=== PATIENT | female | born 1935 | race Caucasian/White ===

== ENCOUNTER 2021-07-22 14:09 | Outpatient (REF) | payer MEDICARE, MEDICAID, SELFPAY ==
--- NOTE | 2021-07-24 10:35 | MHC.AU.MED ---
Medical Clearance for Hearing Instrumentation Date: 07/24/21 Patient Name: Cooper Reagan Date of : 1935 Referring Provider: Muna Chan MD We have seen your patient on 07/23/21 and have determined that they are a candidate for amplification (See accompanying report). Specifically, they would benefit from: Hearing aid use in both ears There is a statute that addresses Medical Evaluation Requirements prior to fitting a patient with a hearing aid. According to [place] statute 265 CMR:6.03(1), (a) General. Except as provided in 265 CMR 6.03(1)(b), a scagliola mechanic shall not sell a hearing aid unless the prospective user has presented to the scagliola mechanic a written statement signed by a licensed physician that states that the patient's hearing loss has been medically evaluated and the patient may be considered a candidate for a hearing aid. The medical evaluation must have taken place within the preceding six months. Please note: Due to the [place] Statute referenced above, we cannot accept a signature other than that of a licensed physician. ACCOUNT RESOLUTION EXPERT and PA signatures cannot be accepted. I am in agreement with the above recommendation. There is no medical contraindication for hearing instrumentation. Physician Signature Date Physician Name (Printed)
--- NOTE | 2021-07-24 10:36 | MHC.AU.ANO ---
Adult Audiological Evaluation Date of Visit: 07/24/21 Reason for Appointment: Patient has been experiencing significant hearing difficulty that is affecting her daily life and communication. Has hearing been tested previously?: No Hearing Handicap Inventory: HHIE SCORE: 40 Based on HHIE score, patient has: Severe perceived hearing handicap Ear History: Ear Deformity: None Reported Recent Ear Drainage: None Reported Recent Ear Pain: None Reported Family History of Hearing Loss?: Yes Recent Ear Infections: None Reported Ear Infections in Childhood: None Reported History of Ear Wax Buildup: None Reported Previous Ear Surgery: None Reported Bothersome Tinnitus/Ringing/Noises in Ears: None Reported Ear used on the phone: Right Ear Blocked/Full Sensation in Ear(s): None Reported History of occupational noise exposure?: No History: No Medical History: Medical History: Cancer, Heart Problems, High Blood Pressure Otoscopy: Right Ear: Unremarkable Left Ear: Unremarkable Tympanometry: Tympanometry performed due to: To assess integrity of the middle ear system Right Ear: Normal Middle Ear System (Type A) Left Ear: Normal Middle Ear System (Type A) Hearing Evaluation: Transducer(s) Used: Insert Earphones Method: Conventional Audiometry Stimuli Used: Pure Tones Right Ear: Description of Hearing: Moderately-severe to severe sensorineural hearing loss Left Ear: Description of Hearing: Moderately-severe to severe sensorineural hearing loss Speech Recognition Threshold (SRT): Method Used: Did not test- Anguillan is not patient's primary language Word Discrimination: Method: Did not test- Anguillan is not patient's primary language Recommendations: Audiological re-evaluation in one year. Trial with amplification is recommended. See Hearing Aid Evaluation report for more information. Diagnosis: Primary Diagnosis: H90.3 Bilateral Sensorineural Hearing Loss Signature: Provider: Jairo Rogers, CCC-A
--- NOTE | 2021-07-24 10:46 | MHC.AU.HAS ---
Hearing Aid Evaluation Date of Visit: 07/24/21 Historical Information: Description of Hearing: Moderately-severe to severe sensorineural hearing loss bilaterally Summary: Patient was seen for audiological evaluation (see separate report for details). Patient is interested in amplifcation. Options were discussed. Patient would prefer a rechargeable custom product. Hearing Aid Prescription: Based on the individual?s shared listening needs, communication environments, dexterity, desire for connectivity, and personal preferences, the following prescription for amplification has been made: Right ear: Drilling And Production Superintendent: TekLinks Model: Evolv AI 1600 ITC-R Battery Size: Rechargeable Color: Mills Left ear: Drilling And Production Superintendent: [employer]ekLinks Model: Evolv AI 1600 ITC-R Battery Size: Rechargeable Color: Mills Action Taken/Action Needed: Earmold Impressions Taken Medical Clearance to be requested from PCP/ENT Hearing Instrument Fitting to be scheduled when materials arrive Primary Diagnosis: H90.3 Bilateral Sensorineural Hearing Loss Signature: Provider: Jairo Rogers, CCC-A
== END 2021-07-22 14:10 | disposition home or self-care (01) ==
LOC: HO.SH 14:09
PROVIDERS: Visit Provider Internal Medicine
DX: Z01.118 Encounter for examination of ears and hearing with other abnormal findings (principal); Z46.1 Encounter for fitting and adjustment of hearing aid; H90.3 Sensorineural hearing loss, bilateral
CPT/HCPCS: 92553; 92567; 92591; V5275

== ENCOUNTER 2021-08-29 13:33 | Outpatient (REF) | payer MEDICARE, MEDICAID, SELFPAY ==
--- NOTE | 2021-09-11 08:53 | MHC.AU.HFA ---
Hearing Instrument Fitting- Adult- Binaural Date of Visit: 08/29/21 Hearing Instruments Dispensed: Right Ear: Scalp Treatment Specialist: Material Mix Model: Dreamisev AI 1600 ITC-R Serial Number: [id number] Repair Warranty: 09/18/2024 Loss and Damage Warranty: 09/18/2024 Battery Size: Rechargeable Color: Mills Type of Wax Guard: HearClear Left Ear: Scalp Treatment Specialist: Material Mix Model: Dreamisev AI 1600 ITC-R Serial Number: [id number] Repair Warranty: 09/18/2024 Loss and Damage Warranty: 09/18/2024 Battery Size: Rechargeable Color: Mills Type of Wax Guard: HearClear Summary of Fitting: Feedback automotive general manager run. Verifit run and levels adjusted to better reach targets. Patient had significant intolerance of the sound of her own voice. She reported that my voice sounded good, but she could not handle how her own voice sounded. Lowered Experience Telephone Services Sales Representative to Level 1 ([place]). Lowered Loud gain. Patient was still complaining about the sound of her own voice. Counseled on realistic expectations and that her voice sounds different because she has not heard her own voice in a long time. She was encouraged to wear the hearing aids throughout all waking hours, and that the perception of her voice will improve with time. Discussed that I did not want to lower the gain anymore than we already had, as then everyone else's voices would be too soft. Hearing aid care and maintenance were discussed and practiced. Hearing aids were not paired to a phone. Recommendations: A hearing instrument follow-up was scheduled. Diagnosis Code(s): Primary Diagnosis: H90.3 Bilateral Sensorineural Hearing Loss Signature: Provider: Jairo Rogers, [facility]
== END 2021-08-29 13:34 | disposition home or self-care (01) ==
LOC: HO.HAP 13:33
PROVIDERS: Visit Provider Internal Medicine
DX: Z46.1 Encounter for fitting and adjustment of hearing aid (principal); H90.3 Sensorineural hearing loss, bilateral
CPT/HCPCS: V5011; V5020; V5160; V5259

== ENCOUNTER 2021-09-12 14:28 | Outpatient (REF) | payer MEDICARE, MEDICAID, SELFPAY ==
--- NOTE | 2021-09-12 15:22 | MHC.AU.HFU ---
Hearing Instrument Follow-Up- Binaural Date of Visit: 09/12/21 Right Ear: Area Plant Manager: Dede Model: Evolv AI 1600 ITC-R Serial Number: [id number] Repair Warranty: 09/18/2024 Loss and Damage Warranty: 09/18/2024 Battery Size: Rechargeable Type of Wax Guard: HearClear Dispensed By: [facility] Date of Fittin08/29/2021 Left Ear: Area Plant Manager: Dede Model: Evolv AI 1600 ITC-R Serial Number: [id number] Repair Warranty: 09/18/2024 Loss and Damage Warranty: 09/18/2024 Battery Size: Rechargeable Type of Wax Guard: HearClear Dispensed By: [facility] Date of Fittin08/29/2021 Follow-Up Summary: Patient arrived for hearing aid follow-up. She reports the hearing aids have been falling out of her ears. Impressions were taken bilaterally without complication and sent to [facility], along with the hearing aids, for remake. Patient also reports that she was still having difficulty hearing conversation. Advised patient that we turned the volume down significantly at the initial fit to help her build tolerance to her own voice. Now that she is starting to adapt to the hearing aids, we can begin turning the volume up closer to target. Programming changes will be made at the next visit when the remade hearing aids have arrived. Recommendations: Patient will be contacted when materials have arrived. Diagnosis Code(s): Primary Diagnosis: H90.3 Bilateral Sensorineural Hearing Loss Signature: Provider: Jairo Rogers, CCC-A
== END 2021-09-12 14:29 | disposition home or self-care (01) ==
LOC: HO.HAP 14:28
PROVIDERS: Visit Provider Internal Medicine
DX: Z13.89 Encounter for screening for other disorder (principal)

== ENCOUNTER 2021-09-26 13:11 | Outpatient (REF) | payer MEDICARE, MEDICAID, SELFPAY | END 2021-09-26 13:12 | disposition home or self-care (01) | LOC: HO.HAP 13:11 | PROVIDERS: Visit Provider Internal Medicine | DX: Z13.89 Encounter for screening for other disorder (principal) ==

== ENCOUNTER 2024-07-27 14:40 | Outpatient (REF) | payer MEDICARE, MEDICAID, SELFPAY ==
--- OUTSIDE RECORDS SUMMARY | 2024-07-27 14:47 | XMS_ITS | Clinical Summary ---
Author Organization [facility] Address [address] [place] [address] Phone Care Team Providers Care Insole Doubler Name Role Phone Muna Chan MD Primary Care Provider [phone] Allergies Active Allergy Reactions Criticality Noted Date Comments Enalapril 03/11/2021 Metoprolol 03/11/2021 Omeprazole 03/11/2021 Medications aspirin 81 mg EC tablet Take 1 Tab by mouth daily. Active atorvastatin (LIPITOR) 80 mg tablet Take 80 mg by mouth daily. Active enalapril (VASOTEC) 20 mg tablet Take 1 Tab by mouth daily. Active levothyroxine (SYNTHROID, LEVOTHROID) 100 mcg tablet Take 100 mcg by mouth daily. Active metoprolol tartrate (LOPRESSOR) 50 mg tablet Take 50 mg by mouth daily. 01/22/2015 Active nitroglycerin (NITROSTAT) 0.[address] 1 Tab under the tongue every 5 minutes as needed. Active omeprazole (PriLOSEC) [address] capsule Take 20 mg by mouth daily. Active Active Problems Problem Noted Date Diagnosed Date Arterial bruit 09/04/2020 Overview (07/15/2024): Last Assessment & Plan: Patient does not either have bilateral carotid bruits or transmitted murmur. I will schedule for carotid Doppler exam. Palpitations 09/04/2020 Overview (07/15/2024): Last Assessment & Plan: Does get these episodes of palpitations is not clear if she is having an arrhythmia or not. Given this fact as well as her bradycardia I will schedule for 48-hour Holter monitor. Coronary atherosclerosis 08/31/2020 Overview (07/15/2024): Last Assessment & Plan: As I noted the patient does have a known history of coronary artery disease. She is getting these episodes of chest pain is not clear to me if this is ischemic mediated or not. However I do think we need to exclude this I will schedule for stress echocardiogram. The meantime I did tell her she have any discomforts in her chest that lasted over 20 minutes call 911. 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 Encounters Date Type Department Care Team Description 07/20/2024 1:38 PM EST - 07/20/2024 11:59 PM EST [facility] at [address] [address] Encounter for screening mammogram for breast cancer Discharge Disposition: Home or Self Care from Last 3 Months Medical History Medical History Date Comments Family history of malignant neoplasm of breast DX:Family history of maligna nt neoplasm of breast Anxiety state DX:Anxiety state Social History Tobacco Use Types Packs/Day Years Used Date Smoking Tobacco: Former Cigarettes 0.3 15.1 0 06/08/2006 - 07/09/2021 Smokeless Tobacco: Never Alcohol Use Standard Drinks/Week Comments Yes 0 (1 standard drink = 0.6 oz pur e alcohol) Comments Unknown Sex and Gender Information Value Date Recorded Sex Assigned at Female 07/05/2024 3:01 PM EST Legal Sex Female 7:52 AM EST Gender Identity Female 07/05/2024 3:01 PM EST Sexual Orientation Straight 07/05/2024 3: 01 PM EST Obstetrics History Last Filed Vital Signs Vital Sign Reading Time Taken Comments Blood Pressure 118/60 01/02/2022 2:53 PM EDT Pulse 56 01/02/2022 2:53 PM EDT Temperature - - Respiratory Rate - - Oxygen Saturation - - Inhaled Oxygen Concentration - - Weight 70.3 kg (155 lb) 01/02/2022 2:53 PM EDT Height 160 cm (5' 3 ) 01/02/2022 2:53 PM EDT Body Mass Index 27.46 01/02/2022 2:53 PM EDT Plan of Treatment Upcoming Encounters Date Type Department Care Team (Late st Contact Info) Description 08/01/2024 2:00 PM EST Office Visit [facility] Hematology Oncology [address] [place] [phone] Joesph Guallpa MD [address] [place] [address] Health Maintenance Due Date Last Done Comments DTaP,Tdap,and Td Vaccines (1 - Tdap) [birth year]30/1954 Pneumococcal Vaccine: 50+ Years (1 of 1 - PCV) 1986 Zoster Vaccines (1 of 2) 1986 RSV Immunization Patients 60+ Years Old (1 - 1-dose 75+ series) 12/30/2011 Cholesterol Screening (Lipid Panel) 05/11/2022 Depression Screening 05/11/2022 Falls Risk Assessment 05/11/2022 Medicare Annual Wellness Visit 05/11/2022 Osteoporosis Screening (Bone Density Screening) 05/11/2022 Social Influencers of Health Screening 05/11/2022 Hypertension/CHF/CAD Annual BMP Blood Test 05/24/2022 COVID-19 Vaccine ( season) 2024 01/18/2022, 03/02/2021, 08/30/2020, Additional history exists Influenza Vaccine (#1) 2024 , 03/05/2018, 03/10/2017, Additional history exists HIB Vaccines Aged Out No longer eligi ble based on patient's age to complete this topic HPV Vaccines Aged Out No longer eligi ble based on patient's age to complete this topic Hepatitis A Vaccines Aged Out No long er eligible based on patient's age to complete this topic Hepatitis B Vaccines Aged Out No long er eligible based on patient's age to complete this topic IPV Vaccines Aged Out No longer eligi ble based on patient's age to complete this topic MMR Vaccines Aged Out No longer eligi ble based on patient's age to complete this topic Meningococcal ACWY Vaccine Aged Out N o longer eligible based on patient's age to complete this topic Meningococcal B Vacine Aged Out No lo nger eligible based on patient's age to complete this topic RSV Immunization Patients Under 20 months Aged Out No longer eligible based on patient's age to complete this topic Varicella Vaccines Aged Out No longer eligible based on patient's age to complete this topic Procedures Procedure Name Priority Date/Time Associated Diagnosis Comments MG MAMMO DIGITAL SCREENING W WILLIE BILAT Routine 07/20/2024 3:39 PM EST Encounter for screening mammogram for breast cancer from Last 3 Months Results * MG Mammo Digital Screening w Willie bilat (07/20/2024 3:39 PM EST) Anatomical Region Laterality Modality Breast Bilateral Mammography 07/21/2024 12:0 4 PM EST Impressions 07/21/2024 12:10 PM EST No mammographic evidence of malignancy. ??Benign findings. BI-RADS: ??Category 2: Benign RECOMMENDATION(S): Routine screening mammogram BILATERAL in 1 year. -------- FINAL REPORT -------- Dictated By: ALLEN CARDENAS Dictated Date: 07/21/2024 12:04 ET Assigned Physician: ALLEN CARDENAS Reviewed and Electronically Signed By: ALLEN CARDENAS Signed Date: 07/21/2024 12:10 ET Workstation ID: [id number] Transcribed By: Self Edit Transcribed Date: 07/21/2024 12:04 ET Narrative 07/21/2024 12:10 PM EST EXAM: MG MAMMO DIGITAL SCREENING W WILLIE BILAT EXAM DATE AND TIME: 07/20/2024 3:39 PM HISTORY: Screening, the patient has a personal history of right breast cancer treated with lumpectomy and radiation in 2010. COMPARISON: 09/30/2021 and 09/27/2020 TECHNIQUE: Bilateral digital breast tomosynthesis was performed in the MLO projection. Computer aided detection with [employer] 3D 3.1 was employed. TISSUE DENSITY: b: There are scattered areas of fibroglandular density. FINDINGS: There is no evidence of suspicious mass, unusual calcifications, or architectural distortion. ??Postsurgical change can be identified on the right. ??Scattered bilateral benign calcifications are seen. Procedure Note Allen Cardenas MD - 07/21/2024 EXAM: MG MAMMO DIGITAL SCREENING W WILLIE BILAT EXAM DATE AND TIME: 07/20/2024 3:39 PM HISTORY: Screening, the patient has a personal history of right breastcancer treated with lumpectomy and radiation in 2010. COMPARISON: 09/30/2021 and 09/27/2020 TECHNIQUE: Bilateral digital breast tomosynthesis was performed in the MLOprojection. Computer aided detection with [employer] AI 3D 3.1 wasemployed. TISSUE DENSITY: b: There are scattered areas of fibroglandular density. FINDINGS: There is no evidence of suspicious mass, unusual calcifications, orarchitectural distortion. Postsurgical change can be identified on theright. Scattered bilateral benign calcifications are seen. IMPRESSION: No mammographic evidence of malignancy. Benign findings. BI-RADS: Category 2: Benign RECOMMENDATION(S): Routine screening mammogram BILATERAL in 1 year. -------- FINAL REPORT -------- Dictated By: ALLEN CARDENAS Dictated Date: 07/21/2024 12:04 ET Assigned Physician: ALLEN CARDENAS Reviewed and Electronically Signed By: ALLEN CARDENAS Signed Date: 07/21/2024 12:10 ET Workstation ID: [id number] Transcribed By: Self Edit Transcribed Date: 07/21/2024 12:04 ET us Self Referral Sppl IMG BI PROCEDURES Final Resul t from Last 3 Months Insurance MEDICARE MEDICAID - [place] Care Teams Insole Doubler Relationship Specialty Start Date End Date Muna Chan MD [address] [place] [address] PCP - General 08/21/13
--- OUTSIDE RECORDS SUMMARY | 2024-07-27 14:47 | XMS_ITS | Clinical Summary ---
Author Organization [facility] Address [address] [place] [address] Care Team Providers Care Refrigerator Repairman Name Role Phone Muna Chan MD Primary Care Provider [phone] Allergies No known active allergies Medications Medication Sig Dispensed Refills Start Date End Date Status metoprolol succinate (TOPROL-XL) 24 hr tablet 50 mg Take by mouth daily. 0 Active levothyroxine (SYNTHROID, LEVOXYL) tablet 88 mcg Take 88 mcg by mouth every morning on an empty stomach. 0 Active atorvastatin (LIPITOR) tablet 80 mg Take 80 mg by mouth daily. 0 Active enalapril (VASOTEC) 20 MG tablet Take 20 mg by mouth daily. 0 Active omeprazole (PriLOSEC) 20 MG capsule Take 20 mg by mouth daily. 0 Active aspirin EC 81 MG tablet Take 81 mg by mouth daily. 0 Active Active Problems No known active problems Social History Tobacco Use Types Packs/Day Years Used Date Smoking Tobacco: Former Smokeless Tobacco: Never Alcohol Use Standard Drinks/Week Comments No 0 (1 standard drink = 0.6 oz pur e alcohol) Sex and Gender Information Value Date Recorded Sex Assigned at Not on file Gender Identity Not on file Sexual Orientation Not on file Last Filed Vital Signs Vital Sign Reading Time Taken Comments Blood Pressure 133/49 09/05/2020 1:11 PM EDT Pulse 58 09/05/2020 1:11 PM EDT Temperature 36.6 ??C (97.8 ??F) 09/05/2020 1:11 PM ED T Respiratory Rate - - Oxygen Saturation 98% 09/05/2020 1:11 PM EDT Inhaled Oxygen Concentration - - Weight 69.4 kg (153 lb) 09/05/2020 1:11 PM EDT Height 153.7 cm (5' 0.5 ) 11/30/2017 2:43 PM EDT Body Mass Index 29.39 11/30/2017 2:43 PM EDT Plan of Treatment Health Maintenance Due Date Last Done Comments COVID-19 Vaccine (#1) 07/01/1936 Depression Screening 1948 Preventative Health Evaluation 1954 DTap / Tdap / Td (1 - Tdap) 12/30/1955 Shingrix-Zoster Vaccine (1 of 2) 1986 Fall Risk Assessment 2001 Osteoporosis Screening (DEXA Scan) 2001 Pneumococcal Vaccine (1 of 1 - PCV) 2001 RSV Adult > 60+ Yrs or Pregn ant (1 - 1-dose 75+ series) 12/30/2011 Influenza Vaccine (#1) 2024 Hepatitis B Vaccines Aged Out No long er eligible based on patient's age to complete this topic RSV Ped < 20 months Aged Out No longe r eligible based on patient's age to complete this topic Care Teams Refrigerator Repairman Relationship Specialty Start Date End Date Muna Chan MD [address] [place] [address] [address] [place] [address] PCP - General Internal Medicine 04/16/17
--- OUTSIDE RECORDS SUMMARY | 2024-07-27 14:47 | XMS_ITS | Encounter Summary ---
Author Organization [facility] [place] [address] Care Team Providers Care Nursing Educator Name Role Phone Muna Chan MD Primary Care Provider [phone] Reason for Referral * Imaging (Routine) - Closed Specialty Diagnoses / Procedures Referred By Contac t Referred To Contact Radiology Diagnoses Encounter for screening mammogram for breast cancer Procedures MG Mammo Digital Screening w Willie bilat Spp, Self Referral [facility] Referral ID Status Reason Start Date Expiration Date Visits Re quested Visits Authorized [id number] Closed 07/05/2024 07/05/2025 1 1 Reason for Visit * Imaging (Routine) - Closed Specialty Diagnoses / Procedures Referred By Steffen thompson Referred To Contact Radiology Diagnoses Encounter for screening mammogram for breast cancer Procedures MG Mammo Digital Screening w Willie bilat Spp, Self Referral [facility] Referral ID Status Reason Start Date Expiration Date Visits Re quested Visits Authorized [id number] Closed 07/05/2024 07/05/2025 1 1 Encounter Details Date Type Department Care Team (Latest Contact Info) Description 07/20/2024 1:38 PM EST - 07/20/2024 11:59 PM EST [facility] at [address] [phone] Encounter for screening mammogram for breast cancer Discharge Disposition: Home or Self Care Social History Tobacco Use Types Packs/Day Years [...] Orientation Straight 07/05/2024 3: 01 PM EST documented as of this encounter Medications at Time of Discharge aspirin 81 mg EC tablet Take 1 Tab by mouth daily. atorvastatin (LIPITOR) 80 mg tablet Take 80 mg by mouth daily. enalapril (VASOTEC) 20 mg tablet Take 1 Tab by mouth daily. levothyroxine (SYNTHROID, LEVOTHROID) 100 mcg tablet Take 100 mcg by mouth daily. metoprolol tartrate (LOPRESSOR) 50 mg tablet Take 50 mg by mouth daily. 01/22/2015 nitroglycerin (NITROSTAT) 0.[address] 1 Tab under the tongue every 5 minutes as needed. omeprazole (PriLOSEC) [address] capsule Take 20 mg by mouth daily. documented as of this encounter Discharge Disposition Disposition Code Departure Means Destination Home or Self Care documented in this encounter Plan of Treatment Upcoming Encounters Date Type Department Care Team (Late st Contact Info) Description 08/01/2024 2:00 PM EST Office Visit [facility] Hematology Oncology [address] [place] [address] Joesph Guallpa MD [address] [place] [address] documented as of this encounter Procedures Procedure Name Priority Date/Time Associated Diagnosis Comments MG MAMMO DIGITAL SCREENING W WILLIE BILAT Routine 07/20/2024 3:39 PM EST Encounter for screening mammogram for breast cancer documented in this encounter Results * MG Mammo Digital Screening w [...] Signed Date: 07/21/2024 12:10 ET Workstation ID: [id number] Transcribed By: Self Edit Transcribed Date: 07/21/2024 [...] the MLO projection. Computer aided detection with [employer] AI 3D 3.1 was employed. TISSUE DENSITY: b: There are scattered areas of fibroglandular density. FINDINGS: There is no evidence of suspicious mass, unusual calcifications, or architectural distortion. ??Postsurgical change can be identified on the right. ??Scattered bilateral benign calcifications are seen. Procedure Note Allen Cardenas MD - 07/21/2024 EXAM: MAMMO DIGITAL SCREENING W WILLIE BILAT EXAM DATE AND TIME: 07/20/2024 3:39 PM HISTORY: Screening, the patient has a personal history of right breastcancer treated with lumpectomy and radiation in 2010. COMPARISON: 09/30/2021 and 09/27/2020 TECHNIQUE: Bilateral digital breast tomosynthesis was performed in the MLOprojection. Computer aided detection with [employer] AI 3D 3.1 wasemployed. TISSUE DENSITY: b: [...] Signed Date: 07/21/2024 12:10 ET Workstation ID: [id number] Transcribed By: Self Edit Transcribed Date: 07/21/2024 12:04 ET us Self Referral Sppl IMG BI PROCEDURES Final Resul t documented in this encounter Visit Diagnoses Diagnosis Encounter for screening mammogram for breast cancer documented in this encounter Care Teams Nursing Educator Relationship Specialty Start Date End Date Muna Chan MD [address] [place] [address] PCP - General 08/21/13 documented as of this encounter
== END 2024-07-27 14:41 | disposition home or self-care (01) ==
LOC: HO.HAP 14:40
PROVIDERS: Visit Provider Family Medicine Adult Medicine
DX: Z13.89 Encounter for screening for other disorder (principal)

== ENCOUNTER 2024-08-22 12:52 | Outpatient (REF) | payer MEDICARE, MEDICAID, SELFPAY ==
--- OUTSIDE RECORDS SUMMARY | 2024-08-22 15:00 | XMS_ITS | Encounter Summary ---
Author Organization [facility] Address [address] [place] [address] Care Team Providers Care New Product Trainer Name Role Phone Muna Chan MD Primary Care Provider [phone] Reason for Visit * Reason Comments Consult * Consultation (Routine) - Closed Specialty Diagnoses / Procedures Referred By Steffen thompson Referred To Contact Hematology and Oncology Diagnoses Personal history of breast cancer Muna Chan MD [address] [place] [address] Phone: tel: fax: [facility] Hematology Oncology [address] [place] [phone] Phone: tel: fax: Referral ID Status Reason Start Date Expiration Date V isits Requested Visits Authorized [id number] Closed Specialty Services Required 07/14/2024 07/14/2025 1 1 Encounter Details Date Type Department Care Team (Late st Contact Info) Description 08/01/2024 2:00 PM EST Office Visit [facility] Hematology Oncology [address] [place] [address] Joesph Guallpa MD [address] [place], [place] [phone] 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) Social History Tobacco Use Types Packs/Day Years [...] PM EST documented as of this encounter Last Filed Vital Signs Vital Sign Reading Time Taken Comments Blood Pressure 170/52 08/01/2024 2:09 PM EST Pulse 65 08/01/2024 2:09 PM EST Temperature 36.9 ??C (98.5 ??F) 08/01/2024 2:09 PM ES T Respiratory Rate - - Oxygen Saturation 99% 08/01/2024 2:09 PM EST Inhaled Oxygen Concentration - - Weight 65.8 kg (145 lb) 08/01/2024 2:09 PM EST Height 144.8 cm (4' 9 ) 08/01/2024 2:09 PM EST Body Mass Index 31.38 08/01/2024 2:09 PM EST documented in this encounter Progress Notes * Joesph Guallpa MD - 08/01/2024 2:00 PM EST ONC CANCER INITIAL VISIT Dear Muna, Thank you very much for referring this patient for consultation. 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 Patient recently had mammogram reported normal, patient referred to me for evaluation and follow-up, patient is here ROS: Patient has been feeling fair Patient denies any breast related complaint except recent mammogram cause some discomfort Patient denies any chest pain chest pressure Patient we will get some abdominal discomfort in upper abdomen denies any black stool blood in stool Patient denies any new unusual aches and pain PAST MEDICAL HISTORY: Coronary artery disease/[place] Dyslipidemia Hypertension Hypothyroidism Breast cancer PAST SURGICAL HISTORY: Right breast lumpectomy SOCIAL HISTORY: Social History Tobacco Use Smoking status: Former Current packs/day: 0.00 Average packs/day: 0.3 packs/day for 15.1 years (3.8 ttl pk-yrs) Types: Cigarettes Start date: 06/08/2006 Quit date: 07/09/2021 Years since quittin.0 Smokeless tobacco: Never Substance Use Topics Alcohol use: Yes FAMILY HISTORY: Noncontributory MEDICATIONS: Current Outpatient Medications: aspirin 81 mg EC tablet, Take 1 Tab by mouth daily., Disp: , Rfl: atorvastatin (LIPITOR) 80 mg tablet, Take 80 mg by mouth daily., Disp: , Rfl: enalapril (VASOTEC) 20 mg tablet, Take 1 Tab by mouth daily., Disp: , Rfl: levothyroxine (SYNTHROID, LEVOTHROID) 100 mcg tablet, Take 100 mcg by mouth daily., Disp: , Rfl: metoprolol tartrate (LOPRESSOR) 50 mg tablet, Take 50 mg by mouth daily., Disp: , Rfl: omeprazole (PriLOSEC) [address] capsule, Take 20 mg by mouth daily., Disp: , Rfl: No Known Allergies PHYSICAL EXAM: Visit Vitals BP (!) 170/52 (BP Location: Right arm, Patient Position: Sitting, BP Cuff Size: Adult) Pulse 65 Temp 36.9 ??C (98.5 ??F) (Temporal) Ht 1.448 m (57 ) Wt 65.8 kg (145 lb) SpO2 99% BMI 31.38 kg/m?? Smoking Status Former BSA 1.57 m?? ECOG 0 APPEARANCE: Alert and oriented in no acute distress EYES: nonicteric sclera pink conjunctiva ORAL CAVITY: No erythema or exudates NECK: Neck supple, no adenopathy, HEART: normal S1 and S2 LUNG: clear to auscultation bilaterally Breast: There is a healed scar in upper outer quadrant of right breast, there is no discrete palpable mass in either breast LYMPH NODES: No palpable superficial adenopathy ABDOMEN: soft, nontender and no significant organomegaly appreciated. EXTREMITIES: No significant edema erythema or tenderness ASSESSMENT 1. 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 Patient recent mammogram showed no significant abnormality, I gave her reassurance about her good prognosis, I told her with the help of interpretation. Even if she have recurrence of malignancy, most likely she will not have better outcome because of cancer because she can be treated at that time with some hormone blocking drug, that is the reason I would not recommend any more mammogram, I toldher she need to have a good physical and breast exam once a year PLAN: Return to office as needed or in 1 year Joesph Guallpa MD cc: Muna Chan MD documented in this encounter Plan of Treatment Upcoming Encounters Date Type Department Care Team (Late st Contact Info) Description 10/25/2024 1:30 PM EDT Ancillary Procedure [facility] [address] [address] 08/09/2025 1:00 PM EST Office Visit [facility] Hematology Oncology [address] [place] [address] Joesph Guallpa MD [address] [place] [address] documented as of this encounter Visit Diagnoses Diagnosis 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 08/01/2024 documented as of this encounter Orders Outpatient Referral Count Last Ordered Date Fir st Ordered Date AMB REFERRAL TO HEMATOLOGY / ONCOLOGY 1 documented in this encounter Care Teams New Product Trainer Relationship Specialty Start Date End Date Muna Chan MD [address] [place] [address] PCP - General 08/21/13 documented as of this encounter
--- OUTSIDE RECORDS SUMMARY | 2024-08-22 15:00 | XMS_ITS | Clinical Summary ---
Author Organization [facility] Address [address] [place] [address] Care Team Providers Care Professional Tutor Name Role Phone Muna Chan MD Primary Care Provider [phone] Allergies No known active allergies Medications Medication [...] age to complete this topic Care Teams Professional Tutor Relationship Specialty Start Date End Date Muna Chan MD [address] [place] [address] [address] [place] [address] PCP - General Internal Medicine 04/16/17
--- OUTSIDE RECORDS SUMMARY | 2024-08-22 15:00 | XMS_ITS | Clinical Summary ---
Author Organization [facility] Address [address] [place] [address] Phone Care Team Providers Care Forestry Support Specialist Name Role Phone Muna Chan MD Primary Care Provider [phone] Allergies No known active allergies Medications aspirin 81 mg EC tablet Take 1 Tab by mouth daily. Active atorvastatin (LIPITOR) 80 mg tablet Take 80 mg by mouth daily. Active metoprolol tartrate (LOPRESSOR) 50 mg tablet Take 50 mg by mouth daily. 01/23/20 15 Active omeprazole (PriLOSEC) [address] capsule Take 20 mg by mouth daily. Active levothyroxine (SYNTHROID, LEVOTHROID) 125 mcg tablet Take 25 mcg by mouth 1 (one) time each day before breakfast. Active irbesartan-hyd roCHLOROthiazi de (AVALIDE) 300-12.5 mg per tablet Take 1 tablet by mouth 1 (one) time each day. Active enalapril (VASOTEC) 20 mg tablet Take 1 Tab by mouth daily. 025 Discontinued(Di scontinued by another clinician) levothyroxine (SYNTHROID, LEVOTHROID) 100 mcg tablet Take 100 mcg by mouth daily. 025 Discontinued(Do se adjustment) nitroglycerin (NITROSTAT) 0.[address] 1 Tab under the tongue every 5 minutes as needed. 025 Discontinued Active Problems Problem Noted Date Diagnosed Date Hypertensive heart disease 08/11/2024 Assessment & Plan (08/11/2024 12:32 PM EST): Orders: Ambulatory referral to Cardiology ECG 12 lead Arterial bruit 09/04/2020 Overview (07/15/2024): Last Assessment [...] I will schedule for 48-hour Holter monitor. Assessment & Plan (08/11/2024 12:32 PM EST): Orders: ECG 12 lead Coronary atherosclerosis 08/31/2020 Overview (07/15/2024): Last Assessment [...] that lasted over 20 minutes call 911. Assessment & Plan (08/11/2024 12:32 PM EST): Orders: ECG 12 lead Essential hypertension 08/31/2020 Assessment & Plan (08/11/2024 12:32 PM EST): Orders: ECG 12 lead Hypothyroidism 08/31/2020 Mixed hyperlipidemia 08/31/2020 Assessment & Plan (08/11/2024 12:32 PM EST): Orders: ECG 12 lead Old myocardial infarction 08/31/2020 Assessment & Plan (08/11/2024 12:32 PM EST): Orders: ECG 12 lead Encounters Date Type Department Care Team Description 08/11/2024 10:20 AM EST Office Visit [facility] Cardiology [facility] [address] [place] [address] Mari Onofre MD Old myocardial infarction (Primary Dx); Essential hypertension; Atherosclerosis of [place] coronary artery of [place] heart without angina pectoris; Palpitations; Mixed hyperlipidemia; Hypertensive heart disease; Hx of coronary artery disease; Non-rheumatic aortic stenosis 08/10/2024 Telephone [facility] Cardiology [facility] [address] [place] [address] Muna Chan MD Referral (Received urgent paper referral.) 08/08/2024 Telephone [facility] [address] [place] [address] Muna Chan MD 08/01/2024 2:00 PM EST Office Visit [facility] Hematology Oncology [address] [place] [phone] Joesph Guallpa MD 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) 07/20/2024 1:38 PM EST - 07/20/2024 11:59 PM EST Hospital En[facility] [address] [address] Encounter for screening mammogram for breast cancer [...] drink = 0.6 oz pur e alcohol) occ Comments Unknown Sex and Gender Information Value Date Recorded Sex Assigned at Female 07/05/2024 3:01 PM EST Legal Sex Female 7:52 AM EST Gender Identity Female 07/05/2024 3:01 PM EST Sexual Orientation Straight 07/05/2024 3: 01 PM EST Obstetrics History Last Filed Vital Signs Vital Sign Reading Time Taken Comments Blood Pressure 140/60 08/11/2024 10:18 AM EST Pulse 56 08/11/2024 10:18 AM EST Temperature 36.9 ??C (98.5 ??F) 08/01/2024 2:09 PM ES T Respiratory Rate - - Oxygen Saturation 98% 08/11/2024 10:18 AM EST Inhaled Oxygen Concentration - - Weight 65.5 kg (144 lb 4.8 oz) 08/11/2024 10:18 AM EST Height 144.8 cm (4' 9 ) 08/11/2024 10:18 AM EST Body Mass Index 31.23 08/11/2024 10:18 AM EST Plan of Treatment Upcoming Encounters Date Type Department Care Team (Late st Contact Info) Description 10/25/2024 1:30 PM EDT Ancillary Procedure [facility] - [address] [place] [address] 08/09/2025 1:00 PM EST Office Visit [facility] Hematology Oncology [address] [place] [phone] Joesph Guallpa MD [address] [place] [address] Health Maintenance Due Date Last Done Comments DTaP,Tdap,and Td Vaccines (1 - Tdap) 12/30/1954 Pneumococcal Vaccine: 50+ Years (1 of 2 - PCV) 12/30/1954 Zoster Vaccines (1 of 2) 12/30/1954 RSV Immunization Patients 60+ Years Old (1 [...] Procedure Name Priority Date/Time Associated Diagnosis Comments ECG 12-LEAD Routine 08/11/2024 10:29 AM EST Old myocardial infarction Essential hypertension Atherosclerosis of [place] coronary artery of [place] heart without angina pectoris Palpitations Mixed hyperlipidemia Hypertensive heart disease Hx of coronary artery disease MG MAMMO DIGITAL SCREENING W GABRIELA BILAT Routine 07/20/2024 3:39 PM EST Encounter for screening mammogram for breast cancer from Last 3 Months Results * ECG 12 lead (08/11/2024 10:29 AM EST) Ventricular Rate ECG 56 BPM GEMUSE Atrial Rate 56 BPM GEMUSE P-R Interval 128 ms GEMUSE QRS Duration 78 ms GEMUSE Q-T Interval 440 ms GEMUSE QTc 424 ms GEMUSE P Wave [place] 67 degrees GEMUSE R [place] 62 degrees GEMUSE T [place] 59 degrees GEMUSE ECG Interpretation Sinus bradycardia Septal infarct , age undetermined Abnormal ECG When compared with ECG of 15-JAN-2011 13:14, Septal infarct is now Present Confirmed by MARI ONOFRE ([id number]) on 08/11/2024 10:41:46 AM GEMUSE 08/11/2024 10:2 9 AM EST 08/11/2024 10:41 AM EST us Mari Onofre MD ECG ORDERABLES Final Result GEMUSE * MG Mammo Digital Screening w Gabriela bilat (07/20/2024 3:39 PM EST) Anatomical Region [...] Signed Date: 07/21/2024 12:10 ET Workstation ID: [id number] Transcribed By: Self Edit Transcribed Date: 07/21/2024 12:04 ET Narrative 07/21/2024 12:10 PM EST EXAM: MG MAMMO DIGITAL SCREENING W GABRIELA BILAT EXAM DATE AND TIME: 07/20/2024 3:39 PM HISTORY: Screening, the patient has a personal history of right breast cancer treated with lumpectomy and radiation in 2010. COMPARISON: 09/30/2021 and 09/27/2020 TECHNIQUE: Bilateral digital breast tomosynthesis was performed in the MLO projection. Computer aided detection with [employer] AI 3D 3.1 was employed. TISSUE DENSITY: b: There are scattered areas of fibroglandular density. FINDINGS: There is no evidence of suspicious mass, unusual calcifications, or architectural distortion. ??Postsurgical change can be identified on the right. ??Scattered bilateral benign calcifications are seen. Procedure Note Allen Cardenas MD - 07/21/2024 EXAM: MG MAMMO DIGITAL SCREENING W GABRIELA BILAT EXAM DATE AND TIME: 07/20/2024 3:39 [...] Signed Date: 07/21/2024 12:10 ET Workstation ID: [id number] Transcribed By: Self Edit Transcribed Date: 07/21/2024 12:04 ET us Self Referral Sppl IMG BI PROCEDURES Final Resul t from Last 3 Months Insurance MEDICARE MEDICAID - [place] Care Teams Forestry Support Specialist Relationship Specialty Start Date End Date Muna Chan MD [address] [place] [address] PCP - General 08/21/13
--- OUTSIDE RECORDS SUMMARY | 2024-08-22 15:00 | XMS_ITS | Encounter Summary ---
Author Organization [facility] Address [address] [place] [address] Care Team Providers Care Financial Report Service Sales Agent Name Role Phone Muna Chan MD Primary Care Provider [phone] Encounter Details Date Type Department Care Team (Late st Contact Info) Description 08/08/[address] [facility] Cardiology [facility] [address] [place] [phone] Muna Chan MD [address] [place] [address] Social History Tobacco Use Types Packs/Day Years [...] PM EST documented as of this encounter Progress Notes * Vaishali Mensah - 08/08/2024 11:49 AM EST Patient's son called asking if we had received a referral from patient's PCP, we have not, told himto give them our direct fax number and also that we are booking in December for routine appts. documented in this encounter Plan of Treatment Upcoming Encounters Date Type Department Care Team (Late st Contact Info) Description 10/25/2024 1:30 PM EDT Ancillary Procedure [facility] - [address] [place] [phone] 08/09/2025 1:00 PM EST Office Visit [facility] Hematology Oncology [address] [place] [phone] Joesph Guallpa MD [address] [place] [address] documented as of this encounter Visit Diagnoses Not on filedocumented in this encounter Care Teams Financial Report Service Sales Agent Relationship Specialty Start Date End Date Muna Chan MD [address] [place] [address] PCP - General 08/21/13 documented as of this encounter
--- OUTSIDE RECORDS SUMMARY | 2024-08-22 15:00 | XMS_ITS | Encounter Summary ---
Author Organization [facility] Address [address] [place] [address] Care Team Providers Care Marker Delivery Name Role Phone Muna Chan MD Primary Care Provider Reason for Visit * Reason Onset Date Comments Referral 08/10/2024 Received urgent paper referral. Encounter Details Date Type Department Care Team (Late Contact Info) Description 08/10/2024 Telephone [facility] Cardiology [facility] [address] [facility] [address] [place] [phone] Muna Chan MD [address] [place] [phone] Referral (Received urgent paper referral.) Social History Tobacco Use Types Packs/Day Years [...] PM EST documented as of this encounter Plan of Treatment Upcoming Encounters Date Type Department Care Team (Late st Contact Info) Description 10/25/2024 1:30 PM EDT Ancillary Procedure [facility] - [address] [place] [phone] 08/09/2025 1:00 PM EST Office Visit [facility] Hematology Oncology [address] [place] [phone] Joesph Guallpa MD [address] [place] [address] documented as of this encounter Visit Diagnoses Not on filedocumented in this encounter Care Teams Marker Delivery Relationship Specialty Start Date End Date Muna Chan MD [address] [place] [address] PCP - General 08/21/13 documented as of this encounter
--- OUTSIDE RECORDS SUMMARY | 2024-08-22 15:00 | XMS_ITS | Encounter Summary ---
Author Organization [facility] Address [address] [place] [address] Care Team Providers Care Sap Solutions Architect Name Role Phone Muna Chan MD Primary Care Provider [phone] Reason for Referral * Imaging (Routine) - Authorized Specialty Diagnoses / Procedures Referred By Steffen thompson Referred To Contact Cardiology Diagnoses Non-rheumatic aortic stenosis Procedures Transthoracic echocardiogram (TTE) complete with PRN contrast, bubble, strain, and 3D order panel WV TTE W 2D IMAGE COMPLETE W DOPPLER ECHO & COLOR FLOW DOPPLER ECHO WV JIE 2D COMPLETE W/CONTRAST OR W & WO CONTRAST WITH DOPPLER Mari Onofre MD [address] [place] [address] Phone: tel: fax: [facility] Referral ID Status Reason Start Date Expiration Date V isits Requested Visits Authorized [id number] Authorized 08/11/2024 08/11/2025 1 1 Reason for Visit * Reason Comments Follow-up Previous Patient of Dr. Kendall * Consultation (Routine) - Closed Specialty Diagnoses / Procedures Referred By Steffen thompson Referred To Contact Cardiology Diagnoses Hypertensive heart disease Hx of coronary artery disease Muna Chan MD [address] [place] [address] Phone: tel: fax: [facility] Cardiology [address] [place] [address] Phone: tel: fax: Referral ID Status Reason Start Date Expiration Date V isits Requested Visits Authorized [id number] Closed Specialty Services Required 08/10/2024 08/10/2025 1 1 Encounter Details Date Type Department Care Team (Late st Contact Info) Description 08/11/2024 10:20 AM EST Office Visit [facility] Cardiology Formerly [facility] [address] [place] [address] Mari Onofre MD [address] [place] [address] DRIVE,[facility] [address] [place] [address] Old myocardial infarction (Primary Dx); Essential hypertension; Atherosclerosis of venetie ira coronary artery of venetie ira heart without angina pectoris; Palpitations; Mixed hyperlipidemia; Hypertensive heart disease; Hx of coronary artery disease; Non-rheumatic aortic stenosis Social History Tobacco Use Types Packs/Day Years [...] Pulse 56 08/11/2024 10:18 AM EST Temperature - - Respiratory Rate - - Oxygen Saturation 98% 08/11/2024 10:18 AM EST Inhaled Oxygen Concentration - - Weight 65.5 kg (144 lb 4.8 oz) 08/11/2024 10:18 AM EST Height 144.8 cm (4' 9 ) 08/11/2024 10:18 AM EST Body Mass Index 31.23 08/11/2024 10:18 AM EST documented in this encounter Progress Notes * Mari Onofre MD - 08/11/2024 10:20 AM ESTAssociated Problem(s): Old myocardial infarction Orders: ECG 12 lead * Mari Onofre MD - 08/11/2024 10:20 AM ESTAssociated Problem(s): Essential hypertension Orders: ECG 12 lead * Mari Onofre MD - 08/11/2024 10:20 AM ESTAssociated Problem(s): Coronary atherosclerosis Orders: ECG 12 lead * Mari Onofre MD - 08/11/2024 10:20 AM ESTAssociated Problem(s): Palpitations Orders: ECG 12 lead * Mari Onofre MD - 08/11/2024 10:20 AM ESTAssociated Problem(s): Mixed hyperlipidemia Orders: ECG 12 lead * Mari Onofre MD - 08/11/2024 10:20 AM ESTAssociated Problem(s): Hypertensive heart disease Orders: Ambulatory referral to Cardiology ECG 12 lead * Mari Onofre MD - 08/11/2024 10:20 AM EST PCP: Muna Chan MD History of Present Illness The patient is an 88-year-old Mong[place]ian female who presents for evaluation of chest discomfort, hypertension, and hyperlipidemia. She is accompanied by her son who serves as fretted instruments inspector. She experiences intermittent, brief episodes of left-sided chest pain, described as a needle-like sensation, occurring approximately once a month. These episodes are transient, lasting only a second or two. She does not experience any central chest discomfort or significant dyspnea during ambulation. Her physical activity is limited, but she reports no major respiratory issues. She notes an improv ement in her condition when she engages in daily walks for an hour. She also reports audible heart sounds at night, necessitating a change in head position to the right side for better audibility. She does not experience any lower extremity edema. She has no history of cerebrovascular accidents or transient ischemic attacks. During a recent visit to her primary care physician, Dr. Chan, her blood pressure was found to be elevated, ranging from 170 to 180 systolic. Today, her blood pressure is 140/60, which is significantly lower than the previous reading. A home reading was recorded as 172/72. Consequently, her antihyp ertensive medication was adjusted. She does not maintain a home blood pressure log, but she ensuresdaily medication adherence. She is on irbesartan and hydrochlorothiazide. She has been on a consistent dose of atorvastatin 80 mg for cholesterol management for the past 30 years. MEDICATIONS Current: Irbesartan, hydrochlorothiazide, atorvastatin ACTIVE MEDICATIONS: Outpatient Medications Marked as Taking for the 08/11/24 encounter (Office Visit) with Mari Onofre MD Medication Sig Dispense Refill aspirin 81 mg EC tablet Take 1 Tab by mouth daily. atorvastatin (LIPITOR) 80 mg tablet Take 80 mg by mouth daily. irbesartan-hydroCHLOROthiazide (AVALIDE) 300-12.5 mg per tablet Take 1 tablet by mouth 1 (one) timeeach day. levothyroxine (SYNTHROID, LEVOTHROID) 125 mcg tablet Take 25 mcg by mouth 1 (one) time each day before breakfast. metoprolol tartrate (LOPRESSOR) 50 mg tablet Take 50 mg by mouth daily. omeprazole (PriLOSEC) [address] capsule Take 20 mg by mouth daily. PAST MEDICAL HISTORY: Patient Active Problem List Diagnosis Date Noted Date Diagnosed Hypertensive heart disease 08/11/2024 Arterial bruit 09/04/2020 Last Assessment & Plan: Patient does not either have bilateral carotid bruits or transmitted murmur. I will schedule for carotid Doppler exam. Palpitations 09/04/2020 Last Assessment & Plan: Does get these episodes of palpitations is not clear if she is having an arrhythmia or not. Given this fact as well as her bradycardia I will schedule for 48-hour Holter monitor. Coronary atherosclerosis 08/31/2020 Last Assessment & Plan: As I noted the patient does have a known history of coronary artery disease. She is getting these episodes of chest pain is not clear to me if this is ischemic mediated or not. However I do think we need to exclude this I will schedule for stress echocardiogram. The meantime I did tell her she haveany discomforts in her chest that lasted over 20 minutes call 911. 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 Resolved Problems No resolved problems to display. ALLERGIES: No Known Allergies FAMILY HISTORY: No family history on file. SOCIAL HISTORY: Social History Tobacco Use Smoking status: Former Current packs/day: 0.00 Average packs/day: 0.3 packs/day for 15.1 years (3.8 ttl pk-yrs) Types: Cigarettes Start date: 06/08/2006 Quit date: 07/09/2021 Years since quittin.0 Smokeless tobacco: Never Substance Use Topics Alcohol use: Yes Comment: occ REVIEW OF SYSTEMS: ROS Otherwise negative. PHYSICAL EXAM: Vitals: 08/11/24 1018 BP: (!) 140/60 BP Location: Left arm Patient Position: Sitting BP Cuff Size: Adult Pulse: 56 SpO2: 98% Weight: 65.5 kg (144 lb 4.8 oz) Height: 1.448 m (57 ) APPEARANCE: Alert and in no acute distress, well-developed, well-nourished. EYES: PERRL, conjunctiva and sclera normal EARS: External ears normal. NOSE/SINUS: Nares normal. Septum midline. Mucosa normal. No drainage or sinus tenderness. MOUTH/THROAT: no erythema or exudates NECK: JVP less then 8cm H2O, Bilat bruits vs transmitted murmur., Neck supple, no adenopathy or mass HEART: RRR with normal S1 and S2, 3/6 mid-peaking JC, no diast murmurs, no gallops, no JVD appreciated CHEST: non-tender LUNG: clear to auscultation ABDOMEN: Bowel sounds normoactive, no bruits, soft, non-tender, without organomegaly or palpable masses EXTREMITIES: Extremities warm and well perfused without clubbing, cyanosis, or edema NEURO: Awake, alert and oriented x 3 and Normal gait SKIN: Skin color, texture, turgor normal. No rashes or lesions. EKG: SB, poss septal [place], unchanged TESTING: LDL 82 mg/dl ASSESSMENT/PLAN: Assessment & Plan Old myocardial infarction Orders: ECG 12 lead Essential hypertension Orders: ECG 12 lead Atherosclerosis of venetie ira coronary artery of venetie ira heart without angina pectoris Orders: ECG 12 lead Palpitations Orders: ECG 12 lead Mixed hyperlipidemia Orders: ECG 12 lead Hypertensive heart disease Orders: Ambulatory referral to Cardiology ECG 12 lead Hx of coronary artery disease Orders: Ambulatory referral to Cardiology ECG 12 lead Non-rheumatic aortic stenosis Orders: Transthoracic echocardiogram (TTE) complete with PRN contrast, bubble, strain, and 3D order panel; Future Assessment & Plan 1. Chest discomfort. She reports occasional quick, needle-like pain on the left side of her chest, lasting only a secondor two. This pain is likely related to the chest wall and not the heart. She has a heart murmur suggesting mild to moderate , but it does not appear to be severe. An echocardiogram will be scheduled to assess heart muscle function and valve condition. 2. Hypertension. Her blood pressure has been fluctuating, with recent readings as high as 170-180 mmHg and as low as140/60 mmHg. She is advised to maintain a home blood pressure log and bring it to her next appointment with Dr. Chan. She can take her blood pressure medication either in the morning or at night, but should note the time of administration. She is currently on irbesartan, metoprolol and hydrochlorot hiazide. If blood pressures are excessively elevated the patient may benefit from the addition of amlodipine. Alternatively metoprolol could be transition to carvedilol 6.25 mg twice a day. 3. Hyperlipidemia. Her LDL cholesterol level is 82 mg/dL. The ideal goal is to lower it to around 70 mg/dL. She has been on atorvastatin 80 mg for the past 30 years. Zetia could be considered but it would not be unreasonable to continue her present regimen with more careful attention to dietary habits. We will share the results of the echocardiogram with the patient and with the referring team after they become available. I am not making arrangements for a routine follow-up visit but we would be happy to see this pleasant woman in the future should the need arise. PROCEDURE The patient underwent angioplasty and stent placement in the left anterior descending artery in 2007. Another heart catheterization was performed in 2017. I have obtained verbal consent from Cooper Reagan prior to the recording. I have advised Cooper Reagan that she may refuse the recording and require the recording to be turned off at any timeduring this encounter. The [facility] team will continue to co-manage this patient following the plan of care as established by my initial visit and as per AHA guidelines for ongoing management and surveillance of 1. Old myocardial infarction 2. Essential hypertension 3. Atherosclerosis of venetie ira coronary artery of venetie ira heart without angina pectoris 4. Palpitations 5. Mixed hyperlipidemia 6. Hypertensive heart disease 7. Hx of coronary artery disease This will include medication titration, initiation of appropriate medications and further titration, and diagnostic studies to manage this disease process. documented in this encounter Plan of Treatment Upcoming Encounters Date Type Department Care Team (Late st Contact Info) Description 10/25/2024 1:30 PM EDT Ancillary Procedure [facility] [address] [place] [address] [place] [phone] 08/09/2025 1:00 PM EST Office Visit [facility] Hematology Oncology [address] [place] [address] Joesph Guallpa MD [address] [place] [address] Scheduled Orders Name Type Priority Associated Diagnoses Order Schedule Transthoracic echocardiogram (TTE) complete with PRN contrast, bubble, strain, and 3D order panel Echocardiography Routine Non-rheumatic aortic stenosis 1 Occurrences starting 08/11/2024 until 08/11/2025 documented as of this encounter Procedures Procedure Name Priority Date/Time Associated Diagnosis Comments ECG 12-LEAD Routine 08/11/2024 10:29 AM EST Old myocardial infarction Essential hypertension Atherosclerosis of venetie ira coronary artery of venetie ira heart without angina pectoris Palpitations Mixed hyperlipidemia Hypertensive heart disease Hx of coronary artery disease documented in this encounter Results * ECG 12 lead (08/11/2024 10:29 AM EST) Ventricular Rate ECG 56 BPM GEMUSE Atrial Rate 56 BPM GEMUSE P-R Interval 128 ms GEMUSE QRS Duration 78 ms GEMUSE Q-T Interval 440 ms GEMUSE QTc 424 ms GEMUSE P Wave Circle 67 degrees GEMUSE R Circle 62 degrees GEMUSE T Circle 59 degrees GEMUSE ECG Interpretation Sinus bradycardia Septal infarct , age undetermined Abnormal ECG When compared with ECG of 15-JAN-2011 13:14, Septal infarct is now Present Confirmed by MARI ONOFRE ([id number]) on 08/11/2024 10:41:46 AM GEMUSE 08/11/2024 10:2 9 AM EST 08/11/2024 10:41 AM EST us Mari Onofre MD ECG ORDERABLES Final Result GEMUSE documented in this encounter Visit Diagnoses Diagnosis Old myocardial infarction- Primary Essential hypertension Unspecified essential hypertension Atherosclerosis of venetie ira coronary artery of venetie ira heart without angina pectoris Palpitations Mixed hyperlipidemia Hypertensive heart disease Unspecified hypertensive heart disease without heart failure Hx of coronary artery disease Non-rheumatic aortic stenosis documented in this encounter Discontinued Medications Medication Sig Discontinue Reason Start Date End Da te enalapril (VASOTEC) 20 mg tablet Take 1 Tab by mouth daily. Discontinued by another clinician 08/11/2024 levothyroxine (SYNTHROID, LEVOTHROID) 100 mcg tablet Take 100 mcg by mouth daily. Dose adjustment 08/11/2024 documented as of this encounter Historical Medications * This list may reflect changes made after this encounter. irbesartan-hydroC HLOROthiazide (AVALIDE) 300-12.5 mg per tablet Take 1 tablet by mouth 1 (one) time each day. levothyroxine (SYNTHROID, LEVOTHROID) 125 mcg tablet Take 25 mcg by mouth 1 (one) time each day before breakfast. added in this encounter Orders Outpatient Referral Count Last Ordered Date Fir st Ordered Date AMB REFERRAL TO CARDIOLOGY 1 08/11/2024 documented in this encounter Care Teams Sap Solutions Architect Relationship Specialty Start Date End Date Muna Chan MD [address] [place] [address] PCP - General 08/21/13 documented as of this encounter
--- NOTE | 2024-08-22 15:25 | MHC.AU.HA3 ---
Hearing Instrument Follow-Up- Binaural Date of Visit: 08/22/24 Right Ear: Rodriguez, Model, Color, Serial Number: [id number] [id number] Lt Alton Marrero#[id number] Trimming Machine Operator Repair Warranty: 09/18/2024 Trimming Machine Operator Loss and Damage Warranty: 09/18/2024 Battery Size: Rechargeable Earmold/Dome/CShell/SlimTip: Type of Wax Guard: HearClear Dispensed By: [facility] Date of Fittin08/29/2021 Left Ear: Rodriguez, Model, Color, Serial Number: [id number] [id number] Lt Alton Marrero#[id number] Trimming Machine Operator Repair Warranty: 09/18/2024 Trimming Machine Operator Loss and Damage Warranty: 09/18/2024 Battery Size: Rechargeable Earmold/Dome/CShell/SlimTip: Type of Wax Guard: HearClear Dispensed By: [facility] Date of Fittin08/29/2021 Follow-Up Summary: Here with son for hearing test and to parts picker repaired hearing aids. Best fit to current audiogram as aids were previously under target. Has not worn the hearing aids for quite some time. Reviewed insertion and removal, charging routine, and precautions. Counseled on adjustment to amplification. Recommended striving for consistent daily wear for 3-4 weeks and then return for adjustment if needed. Recommendations: Recommendations: Hearing instrument follow-up or maintenance as needed. Diagnosis Code(s): Primary Diagnosis: H90.3 Bilateral Sensorineural Hearing Loss Signature: Provider: Dennis Sandoval, [facility]3]-A
== END 2024-08-22 12:53 | disposition home or self-care (01) ==
LOC: HO.SH 12:52
PROVIDERS: Visit Provider Internal Medicine
DX: Z01.118 Encounter for examination of ears and hearing with other abnormal findings (principal); H90.3 Sensorineural hearing loss, bilateral
CPT/HCPCS: 92552; 92593

== ENCOUNTER 2025-03-28 10:13 | Outpatient (REF) | payer MEDICARE, MEDICAID, SELFPAY ==
--- NOTE | 2025-03-28 11:06 | MHC.AU.HA3 ---
Hearing Instrument Follow-Up- Binaural Date of Visit: 03/28/25 Right Ear: Make, Model, Color, Serial Number: Dede ARIAS 1600 ITC-R SN: [id number] Color: Mills Cardiac Surgeon Repair Warranty: 09/18/2024 Cardiac Surgeon Loss and Damage Warranty: 09/18/2024 [facility] Service Plan: 08/29/2022 Battery Size: Rechargeable Type of Wax Guard: HearClear Dispensed By: [facility] Date of Fittin08/29/2021 Left Ear: Rodriguez, Model, Color, Serial Number: Dede ARIAS 1600 ITC-R SN: [id number] Color: Mills Cardiac Surgeon Repair Warranty: 09/18/2024 Cardiac Surgeon Loss and Damage Warranty: 09/18/2024 [facility] Service Plan: 08/29/2022 Battery Size: Rechargeable Type of Wax Guard: HearClear Dispensed By: [facility] Date of Fittin08/29/2021 Follow-Up Summary: Accompanied by son. Reported persistent left ear pain. Prescribed abx by PCP about one month ago; however, otalgia has not resolved. Otoscopy clear, bilaterally. Recommend following up with PCP for referral to ENT. Additionally reported sound quality of HAs not clear, difficulty understanding voices. Wax guards almost fully occluded. Cleaned HAs (2). Replaced wax guards (2). Replaced microphone covers (2). Ran through dehumidifier. Listening check demonstrated HAs amplifying clearly. Changed fitting algorithm to NAL-NL2 and increased overall volume and high frequencies even more. Reported difficult to make informed judgement re: sound quality in small, quiet office but willing to try changes. Instructed how to change wax guard. Insistent she was never given any packages. Provided one package and informed her of pricing for wax guards in the future. Recommendations: Hearing instrument follow-up or maintenance as needed. Please contact our clinic with any questions or concerns. Patient will call if problems persist. Diagnosis Code(s): Primary Diagnosis: H90.3 Bilateral Sensorineural Hearing Loss Signature: Provider: Dennis Ramirez, [facility]
--- OUTSIDE RECORDS SUMMARY | 2025-03-28 12:02 | XMS_ITS | Clinical Summary ---
Author Organization [facility] Address [address] [place] [address] Care Team Providers Care Finisher [employer] Strip Name Role Phone Muna Chan MD Primary Care Provider [phone] Allergies No known active allergies Medications Medication [...] 58 09/05/2020 1:11 PM EDT Temperature 36.6 C (97.8 F) 09/05/2020 1:11 PM EDT Respiratory Rate - - Oxygen Saturation 98% [...] 1-dose 75+ series) 12/30/2011 Influenza Vaccine (#1) 2025 Hepatitis B Vaccines Aged Out No long er eligible based on patient's age to complete this topic RSV Ped < 20 months Aged Out No longe r eligible based on patient's age to complete this topic Care Teams Finisher Hot Strip Relationship Specialty Start Date End Date Muna Chan MD [address] [place] [address] [address] [place] [address] PCP - General Internal Medicine 04/16/17
== END 2025-03-28 10:14 | disposition home or self-care (01) ==
LOC: HO.HAP 10:13
PROVIDERS: Visit Provider Family Medicine Adult Medicine
DX: Z46.1 Encounter for fitting and adjustment of hearing aid (principal); H90.3 Sensorineural hearing loss, bilateral
CPT/HCPCS: 92593; 99499